=== PATIENT | female | born 1930 | race Caucasian/White ===

== ENCOUNTER 2016-08-03 10:58 | Outpatient (CLI) | payer MEDICARE, OTHER | END 2016-08-03 10:59 | disposition home or self-care (01) | DX: F51.04 Psychophysiologic insomnia (principal); R06.83 Snoring | CPT/HCPCS: 99203; G0463 ==

== ENCOUNTER 2016-08-09 19:22 | Outpatient (CLI) | payer MEDICARE, OTHER | END 2016-08-09 19:23 | disposition home or self-care (01) | DX: G47.61 Periodic limb movement disorder (principal) ==

== ENCOUNTER 2016-09-02 08:55 | Outpatient (CLI) | payer MEDICARE, OTHER | END 2016-09-02 08:56 | disposition home or self-care (01) | DX: G47.61 Periodic limb movement disorder (principal); R06.83 Snoring | CPT/HCPCS: 99214; G0463 ==

== ENCOUNTER 2016-12-07 07:59 | Outpatient (CLI) | payer MEDICARE, OTHER ==
[2016-12-07 10:20] LABS: BASOPHILS % (AUTO) 0.9 %; EOSINOPHILS # (AUTO) 0.2 10^3/uL (0.0-0.7); EOSINOPHILS % (AUTO) 3.1 %; HCT - HEMATOCRIT 34.8 % (37.0-47.0); HGB - HEMOGLOBIN 11.7 g/dL (12.0-16.0); LYMPHOCYTES # (AUTO) 1.5 10^3/uL (1.5-3.5); LYMPHOCYTES % (AUTO) 28.9 %; MEAN CORPUSCULAR HEMOGLOBIN 31.4 pg (27.0-31.0); MEAN CORPUSCULAR HGB CONC 33.6 g/dL (32.0-36.0); MEAN CORPUSCULAR VOLUME 93.5 fL (81.0-99.0); MEAN PLATELET VOLUME 10.9 fL (7.9-10.8); MONOCYTES # (AUTO) 0.5 10^3/uL (0.0-1.0); MONOCYTES % (AUTO) 9.9 %; NEUTROPHILS % (AUTO) 57.2 %; RED BLOOD COUNT 3.72 10^6/uL (4.20-5.40); RED CELL DISTRIBUTION WIDTH 14.1 % (12.0-15.0); UNCORRECTED WHITE BLOOD COUNT 5.2 x10^3/uL; WHITE BLOOD COUNT 5.2 x10^3/uL (4.8-10.8)
[2016-12-07 10:47] LABS: ALBUMIN/GLOBULIN RATIO 1.4 (1.0-2.2); BILIRUBIN,TOTAL 0.6 mg/dL (0.2-1.0); BUN - BLOOD UREA NITROGEN 18 mg/dL (6-20); CALCIUM 9.3 mg/dL (8.5-10.3); CARBON DIOXIDE - CO2 26 mmol/L (21-32); CHLORIDE 103 mmol/L (101-111); CHOL/HDL RATIO 2.6 (<4.4); CHOLESTEROL 179 mg/dL; CREATININE 0.9 mg/dL (0.4-1.0); GFR - MDRD 59 (>89); GLUCOSE 94 mg/dL (70-100); HDL CHOLESTEROL 69 mg/dL; LDL/HDL RATIO 1.4 (<4.4); POTASSIUM 4.3 mmol/L (3.5-5.0); SODIUM 136 mmol/L (135-145); TOTAL PROTEIN 6.9 g/dL (6.7-8.2); TRIGLYCERIDES 70 mg/dL; VLDL CHOLESTEROL 14 mg/dL
== END 2016-12-07 08:00 | disposition home or self-care (01) ==
LOC: LAB.F 07:59
PROVIDERS: ATTEND Physician Assistant Medical
DX: E78.5 Hyperlipidemia, unspecified (principal); Z79.899 Other long term (current) drug therapy
CPT/HCPCS: 36415; 80053; 80061; 85025

== ENCOUNTER 2017-04-06 11:50 | Outpatient (CLI) | payer MEDICARE, OTHER ==
--- NOTE | 2017-04-07 18:07 | Mammography Report ---
DIGITAL BILATERAL SCREENING MAMMOGRAM: 04/06/2017 COMPARISON STUDY: Mammogram 04/01/2016. TECHNIQUE: Routine CC and MLO projections were obtained of the breasts. FINDINGS: Parenchymal tissue within both breasts is extremely dense, which lowers the sensitivity of mammography; however, there are no dominant masses, suspicious microcalcifications, or secondary sig ns of malignancy. In comparison to the previous studies, there are no significant changes. There ar e stable postoperative changes of the right breast. IMPRESSION: No mammographic evidence of malignancy. PLAN: Screening mammography is recommended annually. BIRADS CATEGORY: 2, BENIGN FINDINGS. STANDARD QUALIFYING STATEMENTS 1. This examination was reviewed with the aid of Computed-Aided Detection (CAD). 2. A negative or benign imaging report should not delay biopsy if clinically suspicious findings are present. Consider surgical consultation if warranted. More than 5% of cancers are not identified b y imaging. 3. Dense breasts may obscure an underlying neoplasm. JOB #: [id number] EXT JOB #:[id number]
== END 2017-04-06 11:51 | disposition home or self-care (01) ==
LOC: DI.S 11:50
PROVIDERS: ATTEND Physician Assistant Medical
DX: Z12.31 Encounter for screening mammogram for malignant neoplasm of breast (principal)
CPT/HCPCS: 77067

== ENCOUNTER 2017-06-11 10:37 | Outpatient (CLI) | payer MEDICARE, OTHER ==
--- NOTE | 2017-06-15 11:46 | XRAY Report ---
DATE OF SERVICE: 06/11/2017 THREE VIEW LUMBAR SPINE: 06/11/2017 CLINICAL INDICATION: Chronic back pain. FINDINGS: AP, lateral, coned-down views of the lumbar spine demonstrate mild degenerative disk and f acet disease, with mild degenerative dextroscoliosis. There is no evidence of compression fracture or sub luxation. Calcified lymph nodes are incidentally noted. The bowel gas pattern is unremarkable. IMPRESSION: Mild degenerative changes. No evidence of fracture. TD: 06/11/2017 21:52
== END 2017-06-11 10:38 | disposition home or self-care (01) ==
LOC: DI.S 10:37
PROVIDERS: ATTEND Family Medicine
DX: M47.896 Other spondylosis, lumbar region (principal); M51.36 Other intervertebral disc degeneration, lumbar region; M41.86 Other forms of scoliosis, lumbar region
CPT/HCPCS: 72100

== ENCOUNTER 2017-09-23 07:59 | Outpatient (CLI) | payer MEDICARE, OTHER ==
[2017-09-23 11:38] LABS: BASOPHILS % (AUTO) 0.6 %; EOSINOPHILS # (AUTO) 0.2 10^3/uL (0.0-0.7); EOSINOPHILS % (AUTO) 3.4 %; HGB - HEMOGLOBIN 11.8 g/dL (12.0-16.0); LYMPHOCYTES # (AUTO) 1.3 10^3/uL (1.5-3.5); LYMPHOCYTES % (AUTO) 25.5 %; MEAN CORPUSCULAR HEMOGLOBIN 31.6 pg (27.0-31.0); MEAN CORPUSCULAR HGB CONC 33.7 g/dL (32.0-36.0); MEAN CORPUSCULAR VOLUME 93.9 fL (81.0-99.0); MEAN PLATELET VOLUME 11.2 fL (7.9-10.8); MONOCYTES # (AUTO) 0.5 10^3/uL (0.0-1.0); NEUTROPHILS # (AUTO) 3.2 10^3/uL (1.5-6.6); NEUTROPHILS % (AUTO) 60.5 %; PLT - PLATELET COUNT 184 10^3/uL (130-450); RED BLOOD COUNT 3.73 10^6/uL (4.20-5.40); RED CELL DISTRIBUTION WIDTH 14.1 % (12.0-15.0); WHITE BLOOD COUNT 5.3 x10^3/uL (4.8-10.8)
[2017-09-23 11:47] LABS: ALBUMIN 3.9 g/dL (3.2-5.5); ALBUMIN/GLOBULIN RATIO 1.3 (1.0-2.2); ALKALINE PHOSPHATASE 55 IU/L (42-121); ALT ALANINE AMINOTRANSFERASE 15 IU/L (10-60); AST ASPARTATE AMINOTRANSFERASE 22 IU/L (10-42); BILIRUBIN,TOTAL 0.5 mg/dL (0.2-1.0); BUN - BLOOD UREA NITROGEN 16 mg/dL (6-20); CALCIUM 9.3 mg/dL (8.5-10.3); CARBON DIOXIDE - CO2 27 mmol/L (21-32); CHLORIDE 102 mmol/L (101-111); CHOL/HDL RATIO 2.4 (<4.4); CHOLESTEROL 178 mg/dL; CREATININE 0.9 mg/dL (0.4-1.0); GFR - MDRD 59 (>89); GLUCOSE 94 mg/dL (70-100); HDL CHOLESTEROL 74 mg/dL; LDL CHOLESTEROL,CALCULATED 91 mg/dL; LDL/HDL RATIO 1.2 (<4.4); SODIUM 135 mmol/L (135-145); TOTAL PROTEIN 6.8 g/dL (6.7-8.2); VLDL CHOLESTEROL 13 mg/dL
== END 2017-09-23 08:00 | disposition home or self-care (01) ==
LOC: LAB.F 07:59
PROVIDERS: ATTEND Nurse Practitioner Family
DX: I10 Essential (primary) hypertension (principal); E78.5 Hyperlipidemia, unspecified; Z12.31 Encounter for screening mammogram for malignant neoplasm of breast
CPT/HCPCS: 36415; 80053; 80061; 83721; 84443; 85025

== ENCOUNTER 2017-12-09 08:06 | Day surgery (SDC) | payer MEDICARE, OTHER ==
[~2017-12-09 08:06] MED LIST: BRIMONIDINE 0.2% OPHTH DROPS 5 ML ONE; BSS/LIDOCAINE/EPINEPHRINE 1 ML SYRINGE ONE; EPINEPHrine 1 MG/ML AMP ONE; TIMOLOL 0.5% OPHTH DROPS ONE; TRIAMCIN/MOXIFLOX OPHTHALMIC 0.6 ML VIAL IO ONE; VANCOMYCIN OPHTHALMI 8MG/0.8ML 8 MG/0.8 ML SYRINGE IO ONE
[2017-12-09] MEDS: PROPARACAINE 0.5% OPHTH DROPS 15 ML LEFTEYE ONE ×2 (08:35→09:10)
[2017-12-09] MEDS: KETOROLAC 0.45% OPHTH DROPS LEFTEYE ONE (08:35)
[2017-12-09] MEDS: PHENYLEPHRINE 2.5% OPHTH 2 ML DROPS LEFTEYE ONE (08:35)
[2017-12-09] MEDS: CYCLOPENTOLATE 1% OPHTH DROPS 2 ML LEFTEYE ONE (08:35)
[2017-12-09] MEDS ORDERED: KETOROLAC 0.45% OPHTH DROPS ONE (08:40)
[2017-12-09] MEDS ORDERED: CYCLOPENTOLATE 1% OPHTH DROPS 2 ML ONE (08:41)
[2017-12-09] MEDS ORDERED: PHENYLEPHRINE 2.5% OPHTH 2 ML DROPS ONE (08:41)
[2017-12-09] MEDS ORDERED: PROPARACAINE 0.5% OPHTH DROPS 15 ML ONE (08:41)
[2017-12-09] MEDS: LACTATED RINGERS 500 ML IV ONE ×2 (08:42)
[2017-12-09] MEDS: BRIMONIDINE 0.2% OPHTH DROPS 5 ML OPTH ONE (09:16)
[2017-12-09] MEDS: TIMOLOL 0.5% OPHTH DROPS OPTH ONE (09:17)
[2017-12-09] MEDS: EPINEPHrine 1 MG/ML AMP IVP ONE (09:17)
[2017-12-09] MEDS: CHONDR SULF/HYALURONATE SYRINGE IO ONE (09:17)
[2017-12-09] MEDS: TRIAMCIN/MOXIFLOX/VANCO 1 ML VIAL IO ONE ×2 (09:18)
[2017-12-09] MEDS: BSS/LIDOCAINE/EPINEPHRINE 1 ML SYRINGE IO ONE (09:18)
[2017-12-09] MEDS ORDERED: MIDAZOLAM 2 MG/2 ML VIAL IVP ONE (09:26)
[2017-12-09 09:29] VITALS: BP 142/46
--- NOTE | 2017-12-09 11:23 | OPERATIVE REPORT ---
DATE OF SERVICE: 12/09/2017 Physician: Mirza Whipple MD PREOPERATIVE DIAGNOSIS: Visually significant cataract, left eye. This was her 1st cataract surgery. POSTOPERATIVE DIAGNOSIS: Visually significant cataract, left eye. This was her 1st cataract surgery. NAME OF PROCEDURE: Phacoemulsification with posterior chamber intraocular lens implant, left eye. SURGEON: Mirza Whipple M.D. ANESTHESIA: Monitored anesthesia care. COMPLICATIONS: None. OPERATIVE INDICATIONS: This is an 87-year-old woman with progressive vision loss in the left eye due to 2+ nuclear sclerotic and vacuolar cataract. Best corrected visual acuity was 20/40 with glare to 20/150 in the left eye. Indications for surgery were difficulty reading, difficulty seeing words, closed captions with game scores on TV, and difficulty driving in low light or at night. She was consented at length concerning the risks and benefits of cataract surgery, after which she expressed a desire to proceed with surgery. OPERATIVE PROCEDURE: The patient was taken into OR #3 and placed under monitored anesthesia care. Surgical timeout was conducted, confirming the correct patient, correct procedure, and correct surgical site. She was given topical anesthesia and then prepped and draped in the usual sterile fashion. The eye was entered at the 6 and 3 o'clock positions. Intracameral Shugarcaine was injected into the anterior chamber, followed by Viscoat. A continuous-tear curvilinear capsulorrhexis was performed. The nucleus was hydrodissected and phacoemulsified. The cortex was evacuated using automated infusion and aspiration. Provisc was injected in the capsular bag, and a 23.5 diopter intraocular lens inserted into the bag. Approximately 0.7 mL of a mixture of triamcinolone, moxifloxacin, and vancomycin was injected subconjunctivally in the superior quadrant for infection and inflammation prophylaxis. I and A was used to evacuate the viscoelastic material. The eye was inflated to physiologic pressure using balanced salt solution and found to be watertight. The patient was taken from the operating room in good condition and given postoperative instructions. TD: 12/09/2017 09:49
== END 2017-12-09 08:07 | disposition home or self-care (01) ==
LOC: SDS 08:06
PROVIDERS: ATTEND Ophthalmology
PROC: 08RK3JZ Replacement of Left Lens with Synthetic Substitute, Percutaneous Approach (ICD-10-PCS; principal; 2017-12-09 09:30)
DX: H25.812 Combined forms of age-related cataract, left eye (principal); I10 Essential (primary) hypertension; E78.5 Hyperlipidemia, unspecified; Z87.891 Personal history of nicotine dependence; K21.9 Gastro-esophageal reflux disease without esophagitis
CPT/HCPCS: 66984; A9270; J3490; V2632

== ENCOUNTER 2018-02-03 08:06 | Day surgery (SDC) | payer MEDICARE, OTHER ==
[~2018-02-03 08:06] MED LIST changes: +KETOROLAC 0.45% OPHTH DROPS ONE; +PHENYLEPHRINE 2.5% OPHTH 2 ML DROPS ONE; +PROPARACAINE 0.5% OPHTH DROPS 15 ML ONE
[2018-02-03] MEDS ORDERED: PROPARACAINE 0.5% OPHTH DROPS 15 ML RIGHTEYE ONE ×2 (08:40→09:34)
[2018-02-03] MEDS ORDERED: CYCLOPENTOLATE 1% OPHTH DROPS 2 ML RIGHTEYE ONE (08:40)
[2018-02-03] MEDS ORDERED: PHENYLEPHRINE 2.5% OPHTH 2 ML DROPS RIGHTEYE ONE (08:40)
[2018-02-03] MEDS ORDERED: KETOROLAC 0.45% OPHTH DROPS RIGHTEYE ONE (08:40)
[2018-02-03] MEDS ORDERED: LACTATED RINGERS 500 ML IV ONE (08:45)
--- NOTE | 2018-02-03 09:03 | ANESTHESIA ---
Pre-Anesthesia VS, & Labs - Diagnosis Right senile combined cataract - Procedure Right phaco with IOL implant Vital Signs: Temp Pulse Resp BP Pulse Ox 36.1 C L 16 147/45 H 97 02/03/18 08:30 02/03/18 08:30 02/03/18 08:30 02/03/18 08:30 Height 5 ft 3 in Weight (kg) 65.9 kg Body Mass Index 24.4 - NPO Last Fluid Intake: Water at 0700 Last Food Intake: Since MN - Is Patient ?: No Home Medications and Allergies Home Medications: Ambulatory Orders Medication Instructions Recorded Confirmed Aspirin [Annalise] 325 mg PO DAILY 03/30/14 12/08/17 Atorvastatin [Lovastatin] 40 mg PO DAILY 03/30/14 12/08/17 Bacillus Coagulan/Calcium Carb 1 tab PO DAILY 03/30/14 12/09/17 [Digestive Advantage Chew Tab] Losartan [Cozaar] 25 mg PO DAILY 03/30/14 12/09/17 Melatonin/Pyridoxine HCl (B6) 1 tab PO QPM PRN 03/30/14 12/08/17 [Melatonin 10 mg Tablet] Metoprolol/Hydrochlorothiazide 100 each PO BID 03/30/14 12/08/17 [Metoprolol-Hctz 100-25 mg Tab] Pantoprazole [Protonix] 40 mg PO DAILY 03/30/14 12/09/17 Spironolactone 25 mg PO DAILY 03/30/14 12/09/17 Calcium Carb,Gluc/Mag Ox,Gluc 1 tab PO DAILY 07/09/14 12/09/17 [Calcium Magnesium Caplet] Cholecalciferol (Vitamin D3) 4,000 unit PO DAILY 07/09/14 12/09/17 [Vitamin D] Cyanocobalamin/Folic Acid [Vitamin 1 ml PO DAILY 07/09/14 12/09/17 [id number] Acid Tablet] Triamcinolone Acetonide [Nasacort] 10.8 ml INH DAILY 11/29/14 12/09/17 Allergies/Adverse Reactions: Allergies Allergy/AdvReac Type Severity Reaction Status Date / Time Sulfa (Sulfonamide Allergy Rash Verified 12/08/17 13:48 Antibiotics) Anes History & Medical History - Anesthetic History Anesthesia Complications: reports: No previous complications Family history of Anesthesia Complications: Denies Family history of Malignant Hyperthermia: Denies - Medical History Cardiovascular: reports: Hypertension Pulmonary: reports: Other Gastrointestinal: reports: GERD, Colon polyps Urinary: reports: None, Frequency Neuro: reports: None Musculoskeletal: reports: None Endocrine/Autoimmune: reports: None Blood Disorders: reports: None Skin: reports: Other Smoking Status: Former smoker Psychosocial: reports: No issues indicated, Alcohol - Surgical History General: Appendectomy, Colonoscopy Gynecologic: Hysterectomy, Other Exam Dental: WNL Mouth Opening: Greater than 4 Fingerbreadths Neck Mobility: Normal Mallampati classification: II Thyromental Distance: greater than 6 cm Respiratory: Lungs clear, Normal breath sounds Mental/Cognitive Status: Alert/Oriented X3 Cognitive Status: Within normal limits Plan Anesthesia Type: MAC Consent for Procedure(s) Verified and Reviewed: Yes Code Status: Attempt Resuscitation ASA classification: 2-Mild systemic disease Is this case an emergency?: No
[2018-02-03] MEDS ORDERED: VANCOMYCIN OPHTHALMI 8MG/0.8ML 8 MG/0.8 ML SYRINGE IO ONE (09:32)
[2018-02-03] MEDS ORDERED: TIMOLOL 0.5% OPHTH DROPS OPTH ONE (09:33)
[2018-02-03] MEDS ORDERED: BRIMONIDINE 0.2% OPHTH DROPS 5 ML OPTH ONE (09:33)
[2018-02-03] MEDS ORDERED: EPINEPHrine 1 MG/ML AMP IR ONE (09:33)
[2018-02-03] MEDS ORDERED: CHONDR SULF/HYALURONATE SYRINGE IO ONE (09:33)
[2018-02-03] MEDS ORDERED: BSS/LIDOCAINE/EPINEPHRINE 1 ML SYRINGE IO ONE ×2 (09:34)
[2018-02-03] MEDS ORDERED: TRIAMCIN/MOXIFLOX/VANCO 1 ML VIAL IO ONE (09:34)
[2018-02-03] MEDS ORDERED: MIDAZOLAM 2 MG/2 ML VIAL IVP ONE (09:35)
[2018-02-03 10:05] VITALS: BP 132/51
--- NOTE | 2018-02-03 10:32 | OPERATIVE REPORT ---
DATE OF SERVICE: 02/03/2018 Physician: Mirza Whipple MD PREOPERATIVE DIAGNOSIS: Visually significant cataract, right eye. Cataract surgery was performed on the left eye on 12/09/2017. POSTOPERATIVE DIAGNOSIS: Visually significant cataract, right eye. Cataract surgery was performed o n the left eye on 12/09/2017. PROCEDURE: Phacoemulsification with posterior chamber intraocular lens implant, right eye. SURGEON: Mirza Whipple MD ANESTHESIA: Monitored anesthesia care. COMPLICATIONS: None. OPERATIVE INDICATIONS: This is an 87-year-old woman with progressive vision loss in the right eye du e to 2+ nuclear sclerotic and 1+ posterior subcapsular cataract. Best corrected visual acuity was 20 /25 with glare to 20/60 in the right eye. Indications for surgery were overall decrease in vision, d ifficulty seeing words on the computer screen, and difficulty seeing words, closed captioning, or deborah e scores on TV. She was consented at length concerning risks and benefits of cataract surgery, after which she expressed a desire to proceed with surgery. OPERATIVE PROCEDURE: The patient was taken into OR #3 and placed under monitored anesthesia care. A surgical timeout was conducted, confirming correct patient, correct procedure, and correct surgical site. She was given topical anesthesia, and prepped and draped in the usual sterile fashion. The ey e was entered at the 12 and 9 o'clock positions. Intracameral Shugarcaine was injected into the ante rior chamber, followed by Viscoat. A continuous-tear curvilinear capsulorrhexis was performed. The nucleus was hydrodissected and phacoemulsified. The cortex was evacuated using automated infusion an d aspiration. Provisc was injected into the capsular bag, and a 24.0 diopter intraocular lens was in serted into the bag. Approximately 0.8 mL of a mixture of triamcinolone, moxifloxacin, and vancomyci n was injected subconjunctivally in the superior quadrant for infection and inflammation prophylaxis. I and A was used to evacuate viscoelastic materials. Eye was inflated to physiologic pressure usin g balanced salt solution and found to be watertight. The patient was taken from the operating room i n good condition and given postop instructions. TD: 02/03/2018 10:08
[2018-02-03] MEDS ORDERED: CYCLOPENTOLATE 1% OPHTH DROPS 2 ML ONE (15:17)
== END 2018-02-03 08:07 | disposition home or self-care (01) ==
LOC: SDS 08:06
PROVIDERS: ATTEND Ophthalmology
PROC: 08RJ3JZ Replacement of Right Lens with Synthetic Substitute, Percutaneous Approach (ICD-10-PCS; principal; 2018-02-03 09:30)
DX: H25.811 Combined forms of age-related cataract, right eye (principal); H35.3190 Nonexudative age-related macular degeneration, unspecified eye, stage unspecified; I10 Essential (primary) hypertension; K21.9 Gastro-esophageal reflux disease without esophagitis; Z85.3 Personal history of malignant neoplasm of breast; Z98.42 Cataract extraction status, left eye; Z79.82 Long term (current) use of aspirin; Z79.899 Other long term (current) drug therapy; Z87.891 Personal history of nicotine dependence
CPT/HCPCS: 66984; A9270; J3490; V2632

== ENCOUNTER 2018-04-13 10:43 | Outpatient (CLI) | payer MEDICARE, OTHER ==
--- NOTE | 2018-04-14 11:16 | Mammography Report ---
Reason: SCREENING MAMMO Procedure Date: 04/13/2018 Accession Number: [id number] / [id number] Procedure: MGS - Screening Mammo Dig Bilat CPT Code: FULL RESULT: EXAM: Screening Mammo Dig Bilat DATE: 04/13/2018 11:16 AM CLINICAL HISTORY: 79-year-old nulliparous female with history of right breast cancer status post lumpectomy and radiation. TECHNIQUE: Bilateral CC and MLO views were obtained. A right exaggerated CC view was obtained. COMPARISON: 04/06/2017, 04/01/2016, 03/28/2015, 03/29/2014. FINDINGS: The breasts demonstrate heterogeneously dense fibroglandular parenchyma bilaterally. Posttreatment changes are again seen in the right breast. Typically benign calcifications are identified in the left breast. No suspicious masses, clustered microcalcifications, or regions of architectural distortion are identified. IMPRESSION: Benign findings RECOMMENDATION: Routine annual screening unless otherwise clinically indicated. BIRADS CATEGORY 2: Benign findings STANDARD QUALIFYING STATEMENTS: 1. This examination was reviewed with the aid of Computer-Aided Detection (CAD). 2. A negative or benign imaging report should not delay biopsy if clinically suspicious findings are present. Consider surgical consultation if warrented. More than 5% of cancers are not identified by imaging. 3. Dense breasts may obscure an underlying neoplasm. 4. This examination was reviewed without the aid of 3D breast imaging (tomosynthesis).
== END 2018-04-13 10:44 | disposition home or self-care (01) ==
LOC: DI.S 10:43
DX: Z12.31 Encounter for screening mammogram for malignant neoplasm of breast (principal); Z85.3 Personal history of malignant neoplasm of breast
CPT/HCPCS: 77067

== ENCOUNTER 2018-04-28 11:50 | Outpatient (CLI) | payer MEDICARE, OTHER ==
[2018-04-28 18:24] LABS: HGB - HEMOGLOBIN 11.7 g/dL (12.0-16.0); MEAN CORPUSCULAR HEMOGLOBIN 31.9 pg (27.0-31.0); MEAN CORPUSCULAR HGB CONC 32.4 g/dL (32.0-36.0); MEAN CORPUSCULAR VOLUME 98.3 fL (81.0-99.0); MEAN PLATELET VOLUME 11.1 fL (7.9-10.8); RED BLOOD COUNT 3.68 10^6/uL (4.20-5.40); RED CELL DISTRIBUTION WIDTH 14.6 % (12.0-15.0); WHITE BLOOD COUNT 6.3 x10^3/uL (4.8-10.8)
[2018-04-28 18:47] LABS: ALBUMIN/GLOBULIN RATIO 1.3 (1.0-2.2); ALKALINE PHOSPHATASE 58 IU/L (42-121); ALT ALANINE AMINOTRANSFERASE 17 IU/L (10-60); AST ASPARTATE AMINOTRANSFERASE 24 IU/L (10-42); BILIRUBIN,TOTAL 0.9 mg/dL (0.2-1.0); BUN - BLOOD UREA NITROGEN 21 mg/dL (6-20); CALCIUM 9.1 mg/dL (8.5-10.3); CARBON DIOXIDE - CO2 26 mmol/L (21-32); CHLORIDE 97 mmol/L (101-111); CHOLESTEROL 174 mg/dL; GFR - MDRD 52 (>89); GLUCOSE 91 mg/dL (70-100); HDL CHOLESTEROL 89 mg/dL; LDL CHOLESTEROL,CALCULATED 76 mg/dL; LDL/HDL RATIO 0.9 (<4.4); SODIUM 131 mmol/L (135-145); VLDL CHOLESTEROL 9 mg/dL
== END 2018-04-28 11:51 | disposition home or self-care (01) ==
LOC: LAB.F 11:50
PROVIDERS: ATTEND Internal Medicine
DX: I10 Essential (primary) hypertension (principal); E53.8 Deficiency of other specified B group vitamins
CPT/HCPCS: 36415; 80053; 80061; 83721; 85027

== ENCOUNTER 2018-05-11 09:44 | Outpatient (CLI) | payer MEDICARE, OTHER ==
--- NOTE | 2018-05-12 09:15 | DEXA Report ---
Reason: OSTEOPOROSIS Procedure Date: 05/11/2018 Accession Number: [id number] / [id number] Procedure: DEX - Dexa Spine and/or Hip CPT Code: FULL RESULT: EXAM: Dexa Spine and/or Hip DATE: 05/11/2018 10:51 AM CLINICAL HISTORY: OSTEOPOROSIS TECHNIQUE: Dual energy x-ray absorptiometry (DXA) was performed on a [employer]. Regions measured are the AP Spine, femoral neck, and if needed forearm. COMPARISON: None. In accordance with the International Society for Clinical Densitometry (ISCD) guidelines, data from previous exams may be reanalyzed using current recommendations and techniques. This is done to allow a more accurate basis for comparison with the current study. FINDINGS: The data for the lumbar spine is as follows: BMD (g/cm/cm) T-SCORE Z-SCORE REGION L1 0.982 -1.2 0.7 L2 1.066 -1.1 0.9 L3 1.186 -0.1 1.9 L4 0.991 -1.7 0.2 TOTAL 1.055 -1.0 0.9 NOTE: All evaluable vertebrae are used for classification The data for the hip is as follows: BMD (g/cm/cm) T-SCORE Z-SCORE REGION Neck 0.842 -1.4 1.1 TOTAL 0.748 -2.1 0.4 NOTE: The femoral neck or total proximal femur, whichever is lowest, is used for classification. * Denotes significant change at the 95% confidence level. Denotes dissimilar scan types or analysis methods. IMPRESSION: THE WHO CLASSIFICATION BASED ON THE INTERNATIONAL REFERENCE STANDARD IS OSTEOPENIA. THE FRACTURE RISK IS INCREASED. RECOMMENDATION: Patients with diagnosis of osteoporosis or osteopenia should have regular bone mineral density assessment. For those eligible for Medicare, routine testing is allowed once every 2 years. Testing frequency can be increased for patients who have rapidly progressing disease or for those who are receiving medical therapy to restore bone mass. COMMENT: World Health Organization (WHO) definitions for osteoporosis and osteopenia: NORMAL BMD: T-score at -1.0 or higher, fracture risk is low OSTEOPENIA BMD: T-score between -1.0 and -2.5, fracture risk is increased. OSTEOPOROSIS BMD: T-score at -2.5 or lower, fracture risk is high. National Osteoporosis Foundation recommends: 1. Obtain adequate dietary calcium (at least 1200 mg per day) and vitamin D (400-800 international units per day). 2. Participate, as appropriate, in regular weightbearing and muscle-strengthening exercise. 3. Avoid tobacco use and reduce alcohol and caffeine intake. 4. For more detailed information see the website at www.NOF.org.
== END 2018-05-11 09:45 | disposition home or self-care (01) ==
LOC: DI 09:44
PROVIDERS: ATTEND Internal Medicine
DX: M85.89 Other specified disorders of bone density and structure, multiple sites (principal)
CPT/HCPCS: 77080

== ENCOUNTER 2019-05-19 08:27 | Outpatient (CLI) | payer MEDICARE ==
[2019-05-19 10:34] LABS: ALBUMIN/GLOBULIN RATIO 1.3 (1.0-2.2); ALKALINE PHOSPHATASE 57 IU/L (42-121); ALT ALANINE AMINOTRANSFERASE 17 IU/L (10-60); AST ASPARTATE AMINOTRANSFERASE 26 IU/L (10-42); BILIRUBIN,TOTAL 0.7 mg/dL (0.2-1.0); BUN - BLOOD UREA NITROGEN 17 mg/dL (6-20); CALCIUM 9.3 mg/dL (8.5-10.3); CARBON DIOXIDE - CO2 27 mmol/L (21-32); CHLORIDE 101 mmol/L (101-111); CHOL/HDL RATIO 2.2 (<4.4); CHOLESTEROL 164 mg/dL; GFR - MDRD 52 (>89); GLUCOSE 103 mg/dL (70-100); HDL CHOLESTEROL 75 mg/dL; LDL CHOLESTEROL,CALCULATED 75 mg/dL; SODIUM 137 mmol/L (135-145); VLDL CHOLESTEROL 14 mg/dL
== END 2019-05-19 08:28 | disposition home or self-care (01) ==
LOC: LAB.S 08:27
PROVIDERS: ATTEND Internal Medicine
DX: E78.5 Hyperlipidemia, unspecified (principal)
CPT/HCPCS: 36415; 80053; 80061; 83721